=== PATIENT | female | born 1945 ===

== ENCOUNTER 2017-10-14 20:10 | Inpatient (IN) | payer MEDICARE ==
[~2017-10-14] VITALS: Ht 170.2 cm; Wt 77.1 kg
[2017-10-14] MEDS ORDERED: ATOR80TA PO (21:01)
[2017-10-14] MEDS ORDERED: CLOP75TA15 PO (21:01)
[2017-10-14] MEDS ORDERED: SULF1TAB48 PO (21:01)
[2017-10-14] MEDS ORDERED: ASPI81TA31 PO (21:01)
[2017-10-14] MEDS ORDERED: Z GUARD REMEDY PASTE 57 GM TUBE TOP PRN (21:45)
[2017-10-14 22:28] VITALS: BP 152/68
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
[2017-10-15 06:13] VITALS: BP 146/75
[2017-10-15 08:30] VITALS: BP 151/87
[2017-10-15] MEDS: ASPIRIN 81 MG TAB.CHEW PO SCH (08:57)
[2017-10-15] MEDS: SULFAMETH/TRIMETH 800/160 MG TABLET PO SCH ×2 (08:57→20:40)
[2017-10-15] MEDS: CLOPIDOGREL 75 MG TABLET PO SCH (08:57)
--- NOTE | 2017-10-15 09:12 | NUR ---
PT. IS ALERT AND VERBALLY RESPONSIVE. STARTED ABT BACTRIM FOR UTI. NOT IN DISTRESS. CONTINUE TO MONITOR
--- NOTE | 2017-10-15 13:39 | NUR ---
INTERDISCIPLINARY TEAM CONFERENCE
[2017-10-15 16:08] VITALS: BP 131/74
--- NOTE | 2017-10-15 19:15 | NUR ---
Received patient in bed. Alert and verbally responsive. Able to make needs known. at bedside. No c/o pain and discomfort. No acute distress. No SOB. Kept clean and dry. All needs attended to promptly. Call light within reach. Will continue to monitor.
[2017-10-15] MEDS: ATORVASTATIN 40 MG TABLET PO SCH (20:39)
[2017-10-15 20:41] VITALS: BP 134/60
--- NOTE | 2017-10-16 06:49 | NUR ---
Patient slept comfortably throughout the night. No c/o pain and discomfort. No acute distress. No SOB. Kept clean and dry. Assisted to the bathroom with walker. Seen by Dr. Castellanos this AM. All needs attended to promptly. Call light within reach. Will continue to monitor.
--- NOTE | 2017-10-16 08:00 | NUR ---
Received patient awake, verbally responsive, not in any form of acute distress. She denies any pain or discomfort at this time. Assisted patient to the bathroom and then back to bed. Call light placed within reach. Reminded to use call light for assistance with verbalized understanding.
[2017-10-16 08:04] LABS: *BILIRUBIN,URIN NEGATIVE (NEGATIVE); *BLOOD, URINE NEGATIVE (NEGATIVE); *CLARITY,URINE CLEAR (CLEAR); *COLOR,URINE YELLOW (YELLOW); *KETONES,URINE NEGATIVE (NEGATIVE); *PROTEIN,URINE NEGATIVE (NEGATIVE); *UROBILINOGEN,URINE 0.2 E.U./dl (NORMAL); LEUKOCYTE ESTERASE ,URINE TRACE (NEGATIVE); NITRITE, URINE NEGATIVE (NEGATIVE); UGLUCOSE NEGATIVE (NEGATIVE)
[2017-10-16 08:24] VITALS: BP 122/63
[2017-10-16 08:27] LABS: BACTERIA,URINE FEW /HPF (NONE SEEN); RBC,URINE 0-3 /HPF (0-3); SQUAMOUS EPITHELIAL CELL,UR MODERATE /HPF (NONE SEEN)
[2017-10-16] MEDS: SULFAMETH/TRIMETH 800/160 MG TABLET PO SCH ×2 (10:14→21:01)
[2017-10-16] MEDS: ASPIRIN 81 MG TAB.CHEW PO SCH (10:14)
[2017-10-16] MEDS: CLOPIDOGREL 75 MG TABLET PO SCH (10:14)
--- NOTE | 2017-10-16 16:10 | NUR ---
Notified Dr. Amelia Samano regarding patient's home medications that are not included in her medications. Dr. Amelia Samano ordered to continue home medications peptiva and finasteride and that MD said OK to use own medications. Also said to continue home medication hydrochlorothiazide.
--- NOTE | 2017-10-16 19:30 | NUR ---
PT ALERT AND ORIENTED IN BED. NO DISTRESS NOTED. COMPLIANT WITH NURSING CARE. FAMILY AT BEDSIDE. SAFETY MAINTAINED. CALL LIGHT WITHIN REACH. WILL CONTINUE TO MONITOR.
[2017-10-16 20:02] VITALS: BP 117/58
[2017-10-16] MEDS: ATORVASTATIN 40 MG TABLET PO SCH (21:01)
[2017-10-16] MEDS: PEPTIVA PO PRN (21:30)
--- NOTE | 2017-10-17 06:46 | NUR ---
PT RESTING IN BED. NO DISTRESS NOTED. COMPLIANT WITH NURSING CARE. SLEPT WELL THROUGHOUT THE NIGHT. SAFETY MAINTAINED. CALL LIGHT WITHIN REACH.
[2017-10-17 07:49] LABS: BASOPHILS % (AUTO) 0.6 % (0.0-2.0); EOSINOPHILS # (AUTO) 0.1 K/uL (0.0-0.7); EOSINOPHILS % (AUTO) 1.6 % (0.0-7.0); HEMATOCRIT 36.6 % (31.2-41.9); HEMOGLOBIN 12.7 g/dL (10.9-14.3); LYMPHOCYTES # (AUTO) 1.3 K/uL (20.0-40.0); LYMPHOCYTES % (AUTO) 24.9 % (20.5-51.5); MEAN CORPUSCULAR HEMOGLOBIN 34.7 uug (24.7-32.8); MEAN CORPUSCULAR HGB CONC 35 g/dL (32.3-35.6); MONOCYTES # (AUTO) 0.6 K/uL (2.0-10.0); MONOCYTES % (AUTO) 10.9 % (0.0-11.0); NEUTROPHILS # (AUTO) 3.2 K/uL (1.8-8.9); PLATELET COUNT (AUTO) 336 K/uL (179-408); RED BLOOD CELL COUNT(AUTO) 3.66 MIL/uL (3.63-4.92); WHITE BLOOD COUNT (AUTO) 5.1 K/uL (3.8-11.8)
[2017-10-17 08:00] VITALS: BP 108/57
[2017-10-17 08:05] LABS: CARBON DIOXIDE 28 mmol/L (21-32); CHLORIDE 103 mmol/L (98-107); CREATININE 0.7 mg/dL (0.6-1.3); GLUCOSE 95 mg/dL (74-106); PHOSPHOROUS 3.9 mg/dL (2.5-4.9); POTASSIUM 3.6 mmol/L (3.5-5.1); UREA NITROGEN, BLOOD 12 mg/dL (7-18)
[2017-10-17] MEDS: FINASTERIDE 1 MG PO SCH (09:23)
[2017-10-17] MEDS: CLOPIDOGREL 75 MG TABLET PO SCH (09:30)
[2017-10-17] MEDS: HYDROCHLOROTHIAZIDE 25 MG TABLET PO SCH (09:30)
[2017-10-17] MEDS: ASPIRIN 81 MG TAB.CHEW PO SCH (09:31)
[2017-10-17] MEDS: SULFAMETH/TRIMETH 800/160 MG TABLET PO SCH ×2 (09:31→21:06)
[2017-10-17 15:54] VITALS: BP 118/49
--- NOTE | 2017-10-17 18:29 | NUR ---
Daily nursing note: Patient was awake, alert and compliant with her regimen as prescribed, assisted with ADLs. Denies pain and not in acute distress, needs attended promptly, seen by Dr. Amelia Samano, with new orders noted and carried out, call light placed in reach, safety measures implemented at all times.
--- NOTE | 2017-10-17 21:05 | NUR ---
RECEIVED Pt IN BED, AWAKE, A/O X 4, COMPLIANT AND COOPERATIVE WITH MEDS AND CARE STAFF, TOOK ALL MEDS WITHOUT ANY PROBLEMS THIS EVENING. ABLE TO MAKE NEEDS KNOWN, ASSISTED BY NURSE AND RISK INTERN TO GO TO THE BATHROOM. DENIES PAIN AT THIS TIME, NO DISTRESS NOTED. VS IN STABLE CONDITION.
[2017-10-17] MEDS: ATORVASTATIN 40 MG TABLET PO SCH (21:06)
[2017-10-17 21:45] VITALS: BP 132/64
[2017-10-18 05:03] VITALS: BP 110/54
[2017-10-18] MEDS: ASPIRIN 81 MG TAB.CHEW PO SCH (08:23)
[2017-10-18] MEDS: HYDROCHLOROTHIAZIDE 25 MG TABLET PO SCH (08:23)
[2017-10-18] MEDS: CLOPIDOGREL 75 MG TABLET PO SCH (08:23)
[2017-10-18 08:24] VITALS: BP 121/61
[2017-10-18] MEDS: FINASTERIDE 1 MG PO SCH (08:24)
[2017-10-18] MEDS: SULFAMETH/TRIMETH 800/160 MG TABLET PO SCH ×2 (08:24→21:11)
[2017-10-18] MEDS: ESTRIOL VG SCH (08:27)
--- NOTE | 2017-10-18 12:43 | NUR ---
SCHEDULED MD APPTS MD ZAPIEN 10/21/17 @1345 [facility] P/U 1300 TRIP #[id number] MD MANUEL 10/26/17 @1500 MD CURIEL 11/26/17 @1130 APPT DATES AND TIMES SCHEDULED BY ROLL CLAMP OPERATOR
[2017-10-18 19:53] VITALS: BP 117/63
--- NOTE | 2017-10-18 20:26 | NUR ---
aaox3-4. ambulates to the BR with walker. voiding well. needs attended. tolerated po meds well. compliant with the care. will monitor patient. in good spirits. pleasant and cooperative. no complaints presented during shift.
[2017-10-18] MEDS: ATORVASTATIN 40 MG TABLET PO SCH (21:11)
[2017-10-18] MEDS: MIRALAX 17 GM POWD.PACK PO PRN (21:12)
--- NOTE | 2017-10-19 05:51 | NUR ---
quiet night. needs attended. ambulates to the BR. voiding without difficulty. slept well throughout the night.
--- NOTE | 2017-10-19 07:58 | NUR ---
Received patient awake, in bed, verbally responsive, able to make needs known, not in any form of acute distress. She denies any pain or discomfort at this time. Assisted her to the bathroom and back to bed. Call light placed within reach.
[2017-10-19 08:38] VITALS: BP 125/53
[2017-10-19] MEDS: CLOPIDOGREL 75 MG TABLET PO SCH (08:52)
[2017-10-19] MEDS: FINASTERIDE 1 MG PO SCH (08:52)
[2017-10-19] MEDS: SULFAMETH/TRIMETH 800/160 MG TABLET PO SCH ×2 (08:52→20:36)
[2017-10-19] MEDS: HYDROCHLOROTHIAZIDE 25 MG TABLET PO SCH (08:53)
[2017-10-19] MEDS: ASPIRIN 81 MG TAB.CHEW PO SCH (08:53)
[2017-10-19] MEDS: ESTRIOL VG SCH (09:09)
--- NOTE | 2017-10-19 19:15 | NUR ---
Received patient in bed. Alert and verbally responsive. Able to make needs known. Denies any pain and discomfort. No acute distress. No SOB. Assisted to bathroom with walker. Kept clean and dry. All needs attended to promptly. Call light within reach. Will continue to monitor.
[2017-10-19] MEDS: ATORVASTATIN 40 MG TABLET PO SCH (20:37)
[2017-10-19 21:20] VITALS: BP 132/65
[2017-10-20 05:32] VITALS: BP 121/58
[2017-10-20 05:34] VITALS: BP 113/54
--- NOTE | 2017-10-20 06:15 | NUR ---
Patient slept comfortably throughout the night. No c/o pain and discomfort. No acute distress. No SOB. Ambulates to bathroom with FWW with assist. Tolerates well. Kept clean and dry. All needs attended to promptly. Call light within reach. Will continue to monitor.
--- NOTE | 2017-10-20 07:59 | NUR ---
I agree Addendum: 10/20/17 at 0800 by MIGUEL HALEY OT Amended: Links added.
--- NOTE | 2017-10-20 08:00 | NUR ---
I agree Addendum: 10/20/17 at 0801 by MIGUEL HALEY OT Amended: Links added.
--- NOTE | 2017-10-20 08:10 | NUR ---
Received patient resting in bed, alert x3. Not in any form of distress. No discomforts noted. Call light within reach. Encouraged to call for needs.
--- NOTE | 2017-10-20 09:00 | NUR ---
Morning care done, oral care done. Denies any pain. With periods of confusion but comprehends with prompting.
[2017-10-20] MEDS: ESTRIOL VG SCH (09:04)
[2017-10-20] MEDS: ASPIRIN 81 MG TAB.CHEW PO SCH (09:04)
[2017-10-20] MEDS: HYDROCHLOROTHIAZIDE 25 MG TABLET PO SCH (09:04)
[2017-10-20] MEDS: FINASTERIDE 1 MG PO SCH (09:04)
[2017-10-20] MEDS: CLOPIDOGREL 75 MG TABLET PO SCH (09:04)
[2017-10-20] MEDS: SULFAMETH/TRIMETH 800/160 MG TABLET PO SCH ×2 (09:04→20:23)
[2017-10-20] MEDS: MIRALAX 17 GM POWD.PACK PO PRN (09:06)
--- NOTE | 2017-10-20 20:00 | NUR ---
Received pt sitting on bed, alert, awake and oriented x3. Able to make needs known. Family member at bedside. No acute distress noted. No complaints of pain or discomfort. Breathing even and unlabored with normal respirations. All due meds given as ordered and well tolerated. Vital signs WNL. Ambulates to the bathroom with walker. Safety and fall precautions observed and maintained. Call light within reach. All needs attended
[2017-10-20] MEDS: ATORVASTATIN 40 MG TABLET PO SCH (20:23)
[2017-10-20 20:29] VITALS: BP 131/69
[2017-10-20] MEDS: PEPTIVA PO PRN (20:36)
[2017-10-21 06:28] VITALS: BP 115/60
[2017-10-21 08:00] VITALS: BP 108/48
[2017-10-21] MEDS: SULFAMETH/TRIMETH 800/160 MG TABLET PO SCH ×2 (08:50→20:03)
[2017-10-21] MEDS: CLOPIDOGREL 75 MG TABLET PO SCH (08:50)
[2017-10-21] MEDS: FINASTERIDE 1 MG PO SCH (08:51)
[2017-10-21] MEDS: ASPIRIN 81 MG TAB.CHEW PO SCH (08:51)
[2017-10-21] MEDS: ESTRIOL VG SCH (08:51)
[2017-10-21] MEDS: HYDROCHLOROTHIAZIDE 25 MG TABLET PO SCH (08:53)
[2017-10-21 16:00] VITALS: BP 116/68
--- NOTE | 2017-10-21 19:42 | NUR ---
Received pt on bed, alert, awake and oriented x3. Able to make needs known. Family member at bedside. No apparent distress noted. Denies pain or discomfort. no SOB noted. All due meds given as ordered and well tolerated. Vital signs stable. Ambulates to the bathroom with walker. Safety and fall precautions observed and maintained. Call light and personal belongings within reach. All needs attended
[2017-10-21] MEDS: ATORVASTATIN 40 MG TABLET PO SCH (20:03)
[2017-10-21] MEDS: PEPTIVA PO PRN (20:04)
[2017-10-21 20:33] VITALS: BP 138/60
[2017-10-22 06:38] VITALS: BP 118/63
--- NOTE | 2017-10-22 07:53 | NUR ---
Received patient awake, sitting up on bed, verbally responsive, not in any form of acute distress. No complain of any pain or discomfort at this time. Assisted to her needs. Call light placed within reach.
[2017-10-22 08:17] VITALS: BP 97/50
[2017-10-22] MEDS: CLOPIDOGREL 75 MG TABLET PO SCH (08:55)
[2017-10-22] MEDS: FINASTERIDE 1 MG PO SCH (08:56)
[2017-10-22] MEDS: ASPIRIN 81 MG TAB.CHEW PO SCH (08:56)
[2017-10-22] MEDS: ESTRIOL VG SCH (08:56)
[2017-10-22] MEDS: HYDROCHLOROTHIAZIDE 25 MG TABLET PO SCH (08:59)
[2017-10-22 16:10] VITALS: BP 141/61
[2017-10-22 19:30] VITALS: BP 129/54
--- NOTE | 2017-10-22 19:50 | NUR ---
Received pt sitting on bed. VSS. Family at bedside. AAO x3. No acute distress noted. No c/o pain or discomfort. Safety measures maintained. Call light and personal belongings within reach. Will continue to monitor.
[2017-10-22] MEDS: ATORVASTATIN 40 MG TABLET PO SCH (20:29)
[2017-10-22] MEDS: PEPTIVA PO PRN (20:29)
[2017-10-23] MEDS: CLOPIDOGREL 75 MG TABLET PO SCH (08:45)
[2017-10-23] MEDS: ESTRIOL VG SCH (08:46)
[2017-10-23] MEDS: ASPIRIN 81 MG TAB.CHEW PO SCH (08:46)
[2017-10-23] MEDS: FINASTERIDE 1 MG PO SCH (08:46)
[2017-10-23] MEDS: HYDROCHLOROTHIAZIDE 25 MG TABLET PO SCH (08:51)
[2017-10-23 15:22] VITALS: BP 135/58
--- NOTE | 2017-10-23 17:54 | NUR ---
End of shift report: Patient alert and oriented x 4 able to make needs known remained stable throughout the shift with no acute changes. No changes in LOC or mentation. All due medications were given- tolerated well. No SOB or distress. Denies any pain or discomforts. Able to ambulate to the bathroom with a walker stand by assist. Hourly rounding done, call light [id number] reach at all times. Bed alarm, bed brakes on for safety. Will endorse accordingly to incoming shift for continuity of care.
--- NOTE | 2017-10-23 19:56 | NUR ---
Received pt resting and sitting on bed. AAO x4. Vital signs stable. No acute distress noted. No c/o pain or discomfort. Pt to be discharged tomorrow. TMS signed and placed in chart. Safety measures maintained. Call light and personal belongings within reach. Will continue to monitor.
[2017-10-23 20:01] VITALS: BP 129/62
[2017-10-23] MEDS: ATORVASTATIN 40 MG TABLET PO SCH (20:21)
[2017-10-23] MEDS: PEPTIVA PO PRN (20:21)
[2017-10-24 08:00] VITALS: BP 128/57
--- NOTE | 2017-10-24 08:25 | NUR ---
Patient awake, verbally responsive, not in any form of acute distress. She denies any pain or discomfort. Sitting up on the chair having breakfast. Assisted to her needs. Call light placed within reach.
--- NOTE | 2017-10-24 09:22 | NUR ---
Patient in the gym doing exercises with physical therapist
[2017-10-24] MEDS: FINASTERIDE 1 MG PO SCH (09:26)
[2017-10-24] MEDS: CLOPIDOGREL 75 MG TABLET PO SCH (09:26)
[2017-10-24] MEDS: ESTRIOL VG SCH (09:26)
[2017-10-24 09:27] VITALS: BP 128/57
[2017-10-24] MEDS: HYDROCHLOROTHIAZIDE 25 MG TABLET PO SCH (09:27)
[2017-10-24] MEDS: ASPIRIN 81 MG TAB.CHEW PO SCH (09:27)
--- NOTE | 2017-10-24 11:48 | NUR ---
Received an order for discharge to home with home health from Dr. Perez.
--- NOTE | 2017-10-24 12:00 | NUR ---
Offered PRN Miralax for no BM but patient refused. Explained risks and benefits but patient still refused.
--- NOTE | 2017-10-24 12:05 | NUR ---
Discharge instructions provided to the patient with verbalized understanding. Discharge paper signed by and given to the patient. Discharge photos taken. All home medications given back to the patient from the pharmacy. All belongings well accounted for and brought with the patient. Patient picked by Jose () via private car. Assisted patient to the parking lot, ambulating with walker. Medications faxed to preferred pharmacy. Addendum: 10/24/17 at 1452 by BLAS SALTER RN [id number] Patient discharged to home, picked up by via private car.
--- NOTE | 2017-10-25 11:12 | NUR ---
INTERDISCIPLINARY TEAM CONFERENCE
--- NOTE | 2017-10-26 16:19 | NUR ---
I agree Addendum: 10/26/17 at 1619 by ROSE MARIE JHA OT Amended: Links added.
--- NOTE | 2017-10-26 16:19 | NUR ---
I agree Addendum: 10/26/17 at 1620 by ROSE MARIE JHA OT Amended: Links added.
== END 2017-10-24 14:05 | disposition home health service (06) | DRG 57 ==
PROVIDERS: ADMIT Physical Medicine & Rehabilitation Pain Medicine; ATTEND Physical Medicine & Rehabilitation Pain Medicine
DX: I69.393 Ataxia following cerebral infarction (principal); I42.8 Other cardiomyopathies; E11.9 Type 2 diabetes mellitus without complications; N39.0 Urinary tract infection, site not specified; I10 Essential (primary) hypertension; R29.6 Repeated falls; R32 Unspecified urinary incontinence; R53.1 Weakness; Z87.820 Personal history of traumatic brain injury; Z96.652 Presence of left artificial knee joint; I44.7 Left bundle-branch block, unspecified; R26.9 Unspecified abnormalities of gait and mobility; L65.9 Nonscarring hair loss, unspecified; R42 Dizziness and giddiness; R30.0 Dysuria; S01.01XD Laceration without foreign body of scalp, subsequent encounter; W19.XXXD Unspecified fall, subsequent encounter; I65.23 Occlusion and stenosis of bilateral carotid arteries; Z91.02 Food additives allergy status; Z78.0 Asymptomatic menopausal state
CPT/HCPCS: 36415; 83735; 84100; 85025; 92507; 92523; 92610; 97110; 97112; 97116; 97530; 97535; A4663